=== PATIENT | female | born 1995 | race Hispanic/Latino ===

== ENCOUNTER 2019-07-05 21:55 | Outpatient (CLI) | payer OTHER ==
[2019-07-05 22:42] VITALS: BP 105/58
[2019-07-05 23:19] LABS: Bilirubin,Urine NEG (Negative); Blood,Urine NEG (Negative); Color,Urine Amber (Yellow); Mucus,Urine 2+ /HPF; Urobilinogen,Urine < 2.0 mg/dL (<2.0)
[2019-07-05 23:27] LABS: Amphetamine Screen,Urine PRESUMPTIVE NEGATIVE; Benzodiazepines Screen,Urine PRESUMPTIVE NEGATIVE; Cocaine Screen,Urine PRESUMPTIVE NEGATIVE; Methadone Screen,Urine PRESUMPTIVE NEGATIVE; Opiate Screen,Urine PRESUMPTIVE NEGATIVE
--- NOTE | 2019-07-05 23:54 | Ultrasound Report ---
US OB >= 14 weeks Fetus INDICATION / CLINICAL INFORMATION: R/O PLACENTA PREVIA AND ABRUPTION. COMPARISON: None available. FINDINGS: Viable single uterine gestation is identified in the cephalic presentation. heart rate 161 bpm The grade 0 placenta is posterior and free of the os. No evidence of abruption. measurements: BPD equal to 20 weeks 3 days Head circumference 18.3 equal to weeks 5 days Abdominal circumference 15.3 equal to 20 weeks 3 days Femur length 3.5 equal to 20 weeks 6 days Estimated body weight 368 g. Amniotic fluid volume appears normal. Cervical length is measured at 3.3 cm. IMPRESSION: Single live intrauterine gestation, 20 weeks 5 days. Normal posterior placenta, no previa. Signer Name: Isak Flores MD Signed: 07/05/2019 11:49 PM Workstation Name: [id number]
[2019-07-05 23:58] LABS: Cannabinoid Screen,Urine PRESUMPTIVE POSITIVE
== END 2019-07-06 01:30 | disposition home or self-care (01) ==
LOC: TRG 21:55 → EEVIPCON 21:55 → LD 21:58 → TRG 07-06 01:30
PROVIDERS: ATTEND Obstetrics & Gynecology
DX: O26.892 Other specified pregnancy related conditions, second trimester (principal); Z3A.20 20 weeks gestation of pregnancy
CPT/HCPCS: 76805; 80307; 81001

== ENCOUNTER 2019-11-01 00:56 | Outpatient (CLI) | payer SELFPAY ==
--- NOTE | 2019-11-01 02:37 | Ultrasound Report ---
ULTRASOUND OBSTETRIC ULTRASOUND BIOPHYSICAL PROFILE INDICATION: No care. Evaluate well-being. Clinical Gestational Age (GA): 37 weeks, 5 days TECHNIQUE: Transabdominal. COMPARISON: OB ultrasound from 07/05/2019. FINDINGS: There is a single intrauterine . Biparietal Diameter = 9.2 cm = 37 weeks, 3 day(s). Head Circumference = 33.8 cm = 39 weeks, 0 day(s). Abdominal Circumference = 33.2 cm = 37 weeks, 1 day(s). Femur Length = 7.3 cm = 37 weeks, 3 day(s). Average Ultrasound Age (AUA) = 37 weeks, 5 day(s). Heart Rate: 124 beats per minute. Estimated Weight in grams (if calculated): 3209 Position: cephalic. Cervix: closed. Length in cm (if measured): Not measured. Placenta: anterior and free of the os. Amniotic Fluid Volume: normal Amniotic Fluid Index (PHUONG) in cm (if calculated): 10.9. Maternal Adnexa: No significant abnormality. The biophysical profile is 8/8. IMPRESSION: 1. Single, living intrauterine with estimated sonographic age of 37 weeks, 5 day(s). 2. Biophysical profile of 88. Signer Name: Ricardo Baldwin MD Signed: 11/01/2019 2:33 AM Workstation Name: [id number]
[2019-11-01 04:11] VITALS: BP 111/70
== END 2019-11-01 03:45 | disposition home or self-care (01) ==
LOC: TRG 00:56
PROVIDERS: ATTEND Obstetrics & Gynecology
DX: O47.1 False labor at or after 37 completed weeks of gestation (principal); Z3A.37 37 weeks gestation of pregnancy
CPT/HCPCS: 76816; 76819

== ENCOUNTER 2019-11-02 00:08 | Outpatient (CLI) | payer SELFPAY ==
[2019-11-02 00:28] VITALS: BP 116/64
== END 2019-11-02 01:07 | disposition home or self-care (01) ==
LOC: TRG 00:08
PROVIDERS: ATTEND Obstetrics & Gynecology
DX: O47.1 False labor at or after 37 completed weeks of gestation (principal); Z3A.38 38 weeks gestation of pregnancy
CPT/HCPCS: 59025; Q0177